=== PATIENT | male | born 1970 | race Hispanic/Latino ===

== ENCOUNTER 2016-12-09 12:12 | Outpatient (CLI) | payer OTHER ==
[~2016-12-09 12:12] MED LIST: PROVENTIL IH ONE
== END 2016-12-09 12:13 | disposition home or self-care (01) ==
LOC: PF 12:12
PROVIDERS: ATTEND Internal Medicine
DX: J44.9 Chronic obstructive pulmonary disease, unspecified (principal)
CPT/HCPCS: 94060; 94640; 94729

== ENCOUNTER 2017-01-14 10:10 | Outpatient (CLI) | payer OTHER ==
--- NOTE | 2017-01-14 11:15 | XRay Report ---
Lumbar spine: AP and lateral views demonstrate spondylosis predominantly affecting the L2-L4 levels with significant narrowing of the L2 to 3 interspace. There appears to have been an anterior bone fusion at L5-S1. The vertebral height and alignment are maintained. The bones appear moderately well mineralized. No prior study for comparison at this time. Impression: No acute finding suspected. Degenerative bone and disc changes as described most significant at L2-3. Apparent L5-S1 fusion.
== END 2017-01-14 10:11 | disposition home or self-care (01) ==
LOC: XRAY 10:10
PROVIDERS: ATTEND Internal Medicine
DX: M47.896 Other spondylosis, lumbar region (principal); M51.37 Other intervertebral disc degeneration, lumbosacral region; J44.9 Chronic obstructive pulmonary disease, unspecified; F32.9 Major depressive disorder, single episode, unspecified; E78.00 Pure hypercholesterolemia, unspecified; M53.82 Other specified dorsopathies, cervical region; R48.0 Dyslexia and alexia
CPT/HCPCS: 72100

== ENCOUNTER 2018-02-02 20:10 | Emergency (ER) | payer SELFPAY ==
[2018-02-02 21:18] LABS: Basophils # (Auto) 0.1 K/mm3 (0.0-0.1); Basophils % (Auto) 0.9 % (0.0-1.8); Eosinophils # (Auto) 0.3 K/mm3 (0.0-0.4); Eosinophils % (Auto) 2.6 % (0.0-4.3); Hematocrit 42.4 % (35.5-45.6); Lymphocytes # (Auto) 3.2 K/mm3 (1.2-5.4); Lymphocytes % (Auto) 26.2 % (13.4-35.0); Mean Corpuscular HGB Conc 35 % (32-34); Mean Corpuscular Hemoglobin 29 pg (28-32); Mean Corpuscular Volume 82 fl (84-94); Monocytes # (Auto) 1.1 K/mm3 (0.0-0.8); Monocytes % (Auto) 8.7 % (0.0-7.3); Platelet Count 315 K/mm3 (140-440)
[2018-02-02 21:26] LABS: INR 0.85 (0.87-1.13)
[2018-02-02 21:27] LABS: Alanine Aminotransferase 27 units/L (7-56); Albumin 4.8 g/dL (3.9-5); BUN/Creatinine Ratio 14; Blood Urea Nitrogen 11 mg/dL (9-20); Calcium 9.4 mg/dL (8.4-10.2); Hemolysis Index 8; Partial Thromboplastin Time 28.9 Sec. (24.2-36.6)
[2018-02-02] MEDS ORDERED: K-DUR PO ONE (21:43)
--- NOTE | 2018-02-02 22:48 | XRay Report ---
FINAL REPORT PROCEDURE: XR CHEST ROUTINE 2V TECHNIQUE: PA and lateral chest radiographs were obtained. CPT 63294 HISTORY: SOB COMPARISON: No prior studies are available for comparison. FINDINGS: Heart: Normal. Mediastinum/Vessels: Normal. Lungs/Pleural space: There are no infiltrates, effusions or pneumothoraces.. Bony thorax: No acute osseous abnormality. Other: IMPRESSION: Normal heart and lungs..
[2018-02-02] MEDS ORDERED: LASIX IV ONE (22:58)
--- NOTE | 2018-02-02 23:11 | Emergency Department Report ---
ED Extremity Problem HPI - General Chief complaint: Pain General Stated complaint: BILATERAL LEG EDEMA Time Seen by Provider: 02/02/18 21:42 Source: patient Mode of arrival: Ambulatory Limitations: Physical Limitation - History of Present Illness Initial comments: For the past couple weeks, patient has had progressive bilateral leg swelling. He endorses mild shortness of breath. He does sleep lying flat at home. No chest pain. He has never been told that he has heart failure. - Related Data Previous Rx's Medication Instructions Recorded Last Taken Type Furosemide [Lasix] 20 mg PO DAILY #14 tablet 02/02/18 Unknown Rx Allergies Allergy/AdvReac Type Severity Reaction Status Date / Time No Known Allergies Allergy Unverified 12/09/16 12:13 ED Review of Systems ROS: Stated complaint: BILATERAL LEG EDEMA Other details as noted in HPI Comment: All other systems reviewed and negative Respiratory: shortness of breath Cardiovascular: edema. denies: orthopnea, paroxysmal nocturnal dyspnea ED Past Medical Hx - Social History Smoking Status: Current Every Day Smoker Substance Use Type: None - Medications Home Medications: Home Medications Medication Instructions Recorded Confirmed Last Taken Type Furosemide [Lasix] 20 mg PO DAILY #14 tablet 02/02/18 Unknown Rx ED Physical Exam - General General appearance: alert, in no apparent distress - Head Head exam: Present: atraumatic, normocephalic - Eye Eye exam: Present: normal appearance - ENT ENT exam: Present: mucous membranes moist - Neck Neck exam: Present: normal inspection - Respiratory Respiratory exam: Present: normal lung sounds bilaterally. Absent: respiratory distress - Cardiovascular Cardiovascular Exam: Present: regular rate, normal rhythm, JVD. Absent: systolic murmur, diastolic murmur, rubs, gallop - GI/Abdominal GI/Abdominal exam: Present: soft, normal bowel sounds - Rectal Rectal exam: Present: deferred - Extremities Exam Extremities exam: Present: normal inspection, pedal edema (2+ bilateral pedal edeam up to both knees) - Back Exam Back exam: Present: normal inspection - Neurological Exam Neurological exam: Present: alert, oriented X3 - Psychiatric Psychiatric exam: Present: normal affect, normal mood - Skin Skin exam: Present: warm, dry, intact, normal color. Absent: rash ED Course Vital Signs 02/02/18 20:49 Temperature 97.7 F Pulse Rate 100 H Respiratory 22 Rate Blood Pressure 179/110 O2 Sat by Pulse 100 Oximetry ED Medical Decision Making - Lab Data Result diagrams: 02/02/18 20:59 02/02/18 20:59 - EKG Data -: EKG Interpreted by Me EKG shows normal: sinus rhythm, axis, intervals, QRS complexes, ST-T waves Rate: normal - EKG Data Interpretation: no acute changes - Radiology Data Radiology results: report reviewed, image reviewed - Medical Decision Making 47-year-old male with no significant past medical history that presents to the ER with bilateral lower leg swelling and mild shortness of breath. Vital signs significant for hypertension with a blood pressure of 180/110. He has a normal oxygen saturation on room air. Patient is not in respiratory distress. He has 2+ pitting edema on exam with JVD. Patient most likely is fluid overloaded from his new onset CHF, which is likely related to his untreated hypertension. Given that patient has no respiratory complaints, with unremarkable lab work, the patient was given IV Lasix in the ER. He will be discharged on 2 weeks worth of 20 mg oral Lasix with instructions to follow-up at the [facility] for further management of his new onset CHF. - Differential Diagnosis acs, chf exacerbation, renal failure, venous stasis Critical Care Time: Yes Critical care attestation.: If time is entered above; I have spent that time in minutes in the direct care of this critically ill patient, excluding procedure time. Critical Care Time: 30 ED Disposition Clinical Impression: Hypertension, CHF (congestive heart failure) Disposition: - TO HOME OR SELFCARE Is pt being admited?: No Does the pt Need Aspirin: No Condition: Stable Instructions: Heart Failure (ED), Hypertension (ED) Prescriptions: Furosemide [Lasix] 20 mg PO DAILY #14 tablet Referrals: [facility] [Outside] - 3-5 Days
[2018-02-03 00:35] LABS: Bilirubin,Urine NEG (Negative); Blood,Urine NEG (Negative); Color,Urine Yellow (Yellow); Mucus,Urine FEW /HPF; Protein,Urine <15 mg/dL mg/dL (Negative); Urobilinogen,Urine < 2.0 mg/dL (<2.0)
[2018-02-03 02:34] VITALS: BP 173/115
== END 2018-02-03 02:35 | disposition home or self-care (01) ==
LOC: ED 20:10
DX: R22.43 Localized swelling, mass and lump, lower limb, bilateral (principal); R06.02 Shortness of breath; I11.0 Hypertensive heart disease with heart failure; I50.9 Heart failure, unspecified; F17.200 Nicotine dependence, unspecified, uncomplicated
CPT/HCPCS: 36415; 71046; 80053; 81001; 83880; 84484; 85025; 85610; 85730; 93005; 93010; 96374; 99291; J1940; 99284